=== PATIENT | female | born 1980 | race Caucasian/White ===

== ENCOUNTER 2016-10-31 15:13 | Emergency (ER) | payer OTHER ==
[2016-10-31 15:21] VITALS: BP 129/65; PULSE 65; TEMP 98.1; BMI 26.6
--- NOTE | 2016-10-31 16:48 | PDOC ---
History of Present Illness <Gaye Covarrubias - Last Filed: 10/31/16 21:19> - General History Source: Patient Exam Limitations: No Limitations - History of Present Illness Initial Comments: 10/31/16 17:30 The patient is a 36 year old female A2, with significant past medical history of hypothyroidism, who presents today complaining of heavy menstrual bleeding.The patient states that she visited her resident assistant 4 days ago for a yeast infection and found out she was . She states that she woke up this morning with heavy menstrual bleeding and clotting. Her LMP was 10/01/16 and she was expecting her menstrual period on 10/29/16. At the resident assistant appointment she did not have an ultrasound or blood work taken. She reports intermittent nausea and urinary frequency. She is worried that she is having a miscarriage. The patient notes that she was given a 3 day medication for her yeast infection by her resident assistant. The resident assistant advised her to use the medication topically and not to insert the medication; however, the patient inserted the medication anyway. No fever, chills, vomiting. No past STDs. Allergies: none reported Surgical Hx: 2 C-sections Social Hx: No tobacco use. Social drinker THIRD MATE: Dr. Rere Sue <Erika Trujillo - Last Filed: 10/31/16 21:27> - General Chief Complaint: Vaginal Bleeding Stated Complaint: VAGINAL BLEEDING () Time Seen by Provider: 10/31/16 16:47 Past History - Past Medical History Thyroid Disease: Yes (hypo) - Psycho/Social/Smoking Cessation Hx Anxiety: No Suicidal Ideation: No Smoking History: Never smoked Hx Alcohol Use: Yes (SOCIAL) Drug/Substance Use Hx: No Substance Use Type: None <Gaye Covarrubias - Last Filed: 10/31/16 21:19> <Erika Trujillo - Last Filed: 10/31/16 21:27> - Past Medical History Allergies/Adverse Reactions: Allergies Allergy/AdvReac Type Severity Reaction Status Date / Time No Known Allergies Allergy Verified 10/31/16 15:20 Home Medications: Ambulatory Orders NK [No Known Home Medication] 08/08/16 Review of Systems - Review of Systems Able to Perform ROS?: Yes Comments:: 10/31/16 17:31 CONSTITUTIONAL: Absent: fever, no chills, no fatigue EYES: Absent: visual changes ENT: Absent: ear pain, no sore throat CARDIOVASCULAR: Absent: chest pain, no palpitations RESPIRATORY: Absent: cough, no SOB GI: Present: intermittent nausea Absent: no vomiting, no constipation, no diarrhea GENITOURINARY: Present: urinary frequency, heavy menstrual bleeding Absent: dysuria, no hematuria MUSCULOSKELETAL: Absent: back pain, no arthralgia, no myalgia SKIN: Absent: rash <Erika Trujillo - Last Filed: 10/31/16 21:27> *Physical Exam - Vital Signs Last Vital Signs Temp Pulse Resp BP Pulse Ox 98.1 F 65 20 129/65 100 10/31/16 15:16 10/31/16 15:16 10/31/16 15:16 10/31/16 15:16 10/31/16 15:16 <Gaye Covarrubias - Last Filed: 10/31/16 21:19> - Vital Signs Last Vital Signs Temp Pulse Resp BP Pulse Ox 98.1 F 65 20 129/65 100 10/31/16 15:16 10/31/16 15:16 10/31/16 15:16 10/31/16 15:16 10/31/16 15:16 - Physical Exam Comments: 10/31/16 18:06 GENERAL: Well-appearing, well-nourished. No apparent distress. HEENT: Normocephalic, atraumatic. PERRL, EOM intact. CARDIOVASCULAR: Normal S1, S2. Regular rate and rhythm. PULMONARY: Clear to auscultation bilaterally. ABDOMEN: Soft, non-distended, non-tender. EXTREMITIES: Normal ROM in all four extremities. No gross deformities. PELVIC: Moderate amount of blood in the vaginal vault. No clots. Cervix not appreciated secondary to patient discomfort. SKIN: Warm, dry. No rash NEUROLOGICAL: No focal neurological deficits. <Erika Trujillo - Last Filed: 10/31/16 21:27> ED Treatment Course - LABORATORY CBC & Chemistry Diagram: 10/31/16 17:25 10/31/16 17:25 <Gaye Covarrubias - Last Filed: 10/31/16 21:19> - LABORATORY CBC & Chemistry Diagram: 10/31/16 17:25 10/31/16 17:25 - RADIOLOGY Radiograph Interpretation: 10/31/16 21:27 EXAM: Ultrasound pelvis transabdominal and transvaginal with duplex IMAGES: 50 EXAM DATE AND TIME: 2016-10-31 19:01:45.0 REASON FOR EXAM: with vaginal bleeding and lower abdominal pain COMPARISON: None FINDINGS: The uterus is mildly enlarged with no uterine masses are visualized. The endometrium is normal in thickness measuring 1 cm No intrauterine gestational sac visualized Ectopic gestation not be ruled out. Correlation with serial beta hCG and followup ultrasound suggested The ovaries are normal in size, both containing small follicles without evidence of torsion No adnexal masses visualized Small amount of free fluid in the posterior cul-de-sac THIS DOCUMENT HAS BEEN ELECTRONICALLY SIGNED Mervin Chris MD 10/31/2016 20:58 [place] Please call Imaging [facility] [employer] [phone] ([phone]) with questions. <Erika Trujillo - Last Filed: 10/31/16 21:27> Medical Decision Making - Medical Decision Making 10/31/16 17:00 36 y/o female presents to the ED with a positive test and c/o vaginal bleeding since this morning. DDx includes but is not limited to: complete ab, missed ab, threatened ab, ectopic , early , anemia. Plan: 1. Urine analysis 2. Urine 3. Beta-hCG 4. CBC 5. Obsere and re-evaluate 10/31/16 18:36 Addendum: The beta hCG level is 18. This level is very low and when correlated clinically it appears that the patient is miscarrying. I will however get an ultrasound to rule out ectopic . 10/31/16 21:19 Addendum: Pelvic ultrasound shows a mildly enlarged uterus with uterine masses. There is no intrauterine gestational sac visualized; however the ovaries are normal in size containing small follicles without evidence of torsion and there are no adnexal masses visualized. I've discussed the results of the blood tests as well as the ultrasound with the patient. I've explained that she may be either miscarrying, have an ectopic or this may be an early normal although normal is unlikely given the amount of bleeding that she is having and her low beta hCG level. I will provide the patient with results of all of her lab studies as well as the ultrasound. I have advised the patient that she must be followed up by her GROUND OPERATIONS SUPERINTENDENT doctor in 2 days for repeat beta and ultrasound. I have also advised the patient to return to the emergency department if she has more bleeding, pain, or any other symptoms. <Gaye Covarrubias - Last Filed: 10/31/16 21:19> *DC/Admit/Observation/Transfer - Discharge Dispostion Admit: No - Attestations Physician Attestion: 10/31/16 18:36 I, Dr. Gaye Covarrubias, attest that the scribes documentation that appears above has been prepared under my direction and personally reviewed by me in its entirety. I confirmed that the note above accurately reflects all work, treatment, procedures, and medical decision-making performed by me. <Gaye Covarrubias - Last Filed: 10/31/16 21:19> - Attestations Scribe Attestion: 10/31/16 17:32 Documentation prepared by YARIEL Burgess, acting as medical translator for Gaye Covarrubias MD. <Erika Trujillo - Last Filed: 10/31/16 21:27> Diagnosis at time of Disposition: Bleeding in early - Discharge Dispostion Disposition: HOME Condition at time of disposition: Stable - Patient Instructions Printed Discharge Instructions: DI for Vaginal Bleeding During Additional Instructions: You are and her having vaginal bleeding. Your beta hCG level is 18. Ultrasound does not show an intrauterine . You may possibly have an ectopic , a miscarriage or be having bleeding early on in a normal . It is essential that you follow-up with your GROUND OPERATIONS SUPERINTENDENT doctor in 2 days in order to have a repeat beta hCG level. Please return to the emergency department if your having more bleeding, abdominal pain, fainting spells or any other concerning symptoms.
[2016-10-31 17:40] LABS: BASOPHIL 1.7 % (0-2.0); EOSINOPHIL 5.6 % (0-4.5); MCH 24.4 pg (25.7-33.7); MCHC 30.6 g/dl (32.0-36.0); MEAN CELL VOLUME 79.5 fl (80-96); MEAN PLT VOLUME 8.4 fl (7.5-11.1); NEUTROPHILS 42.5 % (42.8-82.8); PLATELET COUNT 298 K/MM3 (134-434); RDW 19.8 % (11.6-15.6); WHITE BLOOD COUNT 6.5 K/mm3 (4.0-10.0)
[2016-10-31 17:50] LABS: URINE APPEARANCE CLEAR; URINE BILIRUBIN NEGATIVE (NEGATIVE); URINE COLOR LTYELLOW; URINE GLUCOSE (UA) NEGATIVE (NEGATIVE); URINE KETONE NEGATIVE (NEGATIVE); URINE LEUK ESTERASE NEGATIVE (NEGATIVE); URINE NITRITE NEGATIVE (NEGATIVE); URINE PROTEIN NEGATIVE (NEGATIVE); URINE UROBILINOGEN NEGATIVE E.U./dl (0.2-1.0)
[2016-10-31 17:52] LABS: URINE BLOOD 3+ (NEGATIVE)
[2016-10-31 18:13] LABS: CALCIUM 8.6 mg/dL (8.5-10.1); CREATININE 0.9 mg/dL (0.55-1.02); MAGNESIUM 2.1 mg/dL (1.8-2.4); PHOSPHOROUS 2.9 mg/dL (2.5-4.9)
[2016-10-31 18:45] LABS: URINE MUCUS RARE; URINE RBC 181 /hpf (0-3)
== END 2016-10-31 22:03 | disposition home or self-care (01) ==
LOC: JER 15:13
DX: O26.891 Other specified pregnancy related conditions, first trimester (principal); O20.8 Other hemorrhage in early pregnancy; O99.281 Endocrine, nutritional and metabolic diseases complicating pregnancy, first trimester; E03.8 Other specified hypothyroidism; Z3A.01 Less than 8 weeks gestation of pregnancy
CPT/HCPCS: 36415; 76817-TC; 80048; 81003; 81015; 83735; 84100; 84702; 84703; 85025; 86850; 86900; 86901; 99282-25

== ENCOUNTER 2016-11-02 16:14 | Emergency (ER) | payer OTHER ==
[2016-11-02 16:21] VITALS: BP 104/52; PULSE 65; TEMP 98; BMI 26.6
--- NOTE | 2016-11-02 17:23 | PDOC ---
History of Present Illness - General Chief Complaint: Revisit, Lab Variance Stated Complaint: REPEAT BETA Time Seen by Provider: 11/02/16 16:54 History Source: Patient - History of Present Illness Timing/Duration: reports: constant Past History - Past Medical History Allergies/Adverse Reactions: Allergies Allergy/AdvReac Type Severity Reaction Status Date / Time No Known Allergies Allergy Verified 11/02/16 16:18 Home Medications: Ambulatory Orders NK [No Known Home Medication] 08/08/16 Thyroid Disease: Yes (hypo) - Reproductive History (#): 5 Para: 2 Therapeutic (s) & number: Yes (X2) - Psycho/Social/Smoking Cessation Hx Anxiety: No Suicidal Ideation: No Smoking History: Never smoked Have you smoked in the past 12 months: No Information on smoking cessation initiated: No Hx Alcohol Use: No Drug/Substance Use Hx: No Substance Use Type: None Review of Systems - Review of Systems Constitutional: No: Chills, Fever ABD/GI: No: Nausea, Vomiting, Abdominal cramping : No: Dysuria *Physical Exam - Vital Signs Last Vital Signs Temp Pulse Resp BP Pulse Ox 98.0 F 65 18 104/52 100 11/02/16 16:18 11/02/16 16:18 11/02/16 16:18 11/02/16 16:18 11/02/16 16:18 - Physical Exam General Appearance: Yes: Appropriately Dressed. No: Apparent Distress HEENT: positive: Normal Voice Neck: positive: Supple Respiratory/Chest: negative: Respiratory Distress Gastrointestinal/Abdominal: positive: Soft. negative: Tender Integumentary: positive: Dry, Warm Neurologic: positive: Fully Oriented, Alert, Normal Mood/Affect ED Treatment Course - RADIOLOGY Radiology Studies Ordered: Category Date Time Status <14WKS US [US] Stat Ultrasound 11/02/16 16:59 Ordered Medical Decision Making - Medical Decision Making 11/02/16 17:00 36-year-old female, , was seen in ED 2 weeks ago for vaginal bleed @ ~4 weeks. Beta was 18 w/ US read as of unknown location. Patient told to return today for repeat evaluation. States she continues to bleed but not getting worse and denies any clots, abdominal pain, dysuria, nausea, vomiting, fever or chills. Urine was negative for infection on last visit and patient was O+ on labs. Patient well-appearing and stable in ED, repeat beta and ultrasound pending today 11/02/16 18:38 Beta 5 with no IUP or adnexal mass on US as per radiology. Pt stable for discharge to f/u with her WIRE THREADER this week *DC/Admit/Observation/Transfer Diagnosis at time of Disposition: Spontaneous - Discharge Dispostion Disposition: HOME Condition at time of disposition: Stable - Patient Instructions Printed Discharge Instructions: DI for Miscarriage Additional Instructions: Please follow up with your OB this week
== END 2016-11-02 19:02 | disposition home or self-care (01) ==
LOC: JERFT 16:14
DX: O02.1 Missed abortion (principal); Z3A.01 Less than 8 weeks gestation of pregnancy
CPT/HCPCS: 36415; 76801-TC; 84702; 99281-25

== ENCOUNTER 2017-03-01 20:15 | Emergency (ER) | payer BC, OTHER ==
[2017-03-01 20:25] VITALS: BP 120/70; PULSE 72; TEMP 98.5; BMI 27.4
[2017-03-01] MEDS ORDERED: TRIAMCINOLONE ACET 40MG/1ML VIAL IM ONE (20:53)
[2017-03-01] MEDS ORDERED: TRIAMCINOLONE ACET 40MG/1ML VIAL ONE (20:57)
--- NOTE | 2017-03-01 21:01 | PDOC ---
History of Present Illness - General Chief Complaint: Rash Stated Complaint: RASH Time Seen by Provider: 03/01/17 20:28 History Source: Patient, Family Exam Limitations: No Limitations - History of Present Illness Initial Comments: 03/01/17 20:53 Is here with complaints of rash that started 4 days ago around site of partial thickness burn to left thigh. Was using Silvedene Cream.. When rash developed stoped that however, since has had worsein and spreading of this rash. That is pruritic in nature. Patient denies swelling to face, lips, tongue or breathing problems. Has tried antihistamines including Claritin and Benadryl with minimal resolved. 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 No fever, no ear or throat pain, denies any pain or any swelling, any evidence of cellulitis anywhere. 03/01/17 21:02 03/01/17 21:04 Timing/Duration: reports: getting worse, gone now Severity: Yes: mild, moderate Location: reports: extremities, face, generalized, torso Respiratory Risk Factors: reports: no cause identified Past History - Travel Traveled outside of the country in the last 30 days: No Close contact w/someone who was outside of country & ill: No - Past Medical History Allergies/Adverse Reactions: Allergies Allergy/AdvReac Type Severity Reaction Status Date / Time No Known Allergies Allergy Verified 03/01/17 20:22 Home Medications: Ambulatory Orders Bacitracin 30 gm TP DAILY 03/01/17 Silver Sulfadiazine [Silvadene] 1 applic TP DAILY 03/01/17 Thyroid Disease: Yes (hypo) - Reproductive History (#): 5 Para: 2 Therapeutic (s) & number: Yes (X2) - Psycho/Social/Smoking Cessation Hx Anxiety: No Suicidal Ideation: No Smoking History: Never smoked Have you smoked in the past 12 months: No Hx Alcohol Use: No Drug/Substance Use Hx: No Substance Use Type: None Review of Systems - Review of Systems Able to Perform ROS?: Yes Is the patient limited Colombian proficient: Yes Constitutional: Yes: Symptoms Reported, See HPI, Malaise HEENTM: Yes: Symptoms Reported, Nose Pain, Nose Congestion. No: See HPI Respiratory: Yes: See HPI. No: Symptoms reported ABD/GI: Yes: Symptoms Reported : No: Symptoms Reported Musculoskeletal: No: Symptoms Reported Integumentary: Yes: Symptoms Reported, See HPI, Lesions *Physical Exam - Vital Signs Last Vital Signs Temp Pulse Resp BP Pulse Ox 98.5 F 72 18 120/70 100 03/01/17 20:23 03/01/17 20:23 03/01/17 20:23 03/01/17 20:23 03/01/17 20:23 - Physical Exam General Appearance: Yes: Appropriately Dressed, Apparent Distress, Mild Distress HEENT: positive: JOSEMANUEL, Normal ENT Inspection, TMs Normal, Pharynx Normal Respiratory/Chest: positive: Lungs Clear, Normal Breath Sounds Cardiovascular: positive: Regular Rhythm Extremity: positive: Normal Capillary Refill, Normal Range of Motion. negative : Tender Integumentary: positive: Pale, Rash (discreet rashes non-grouped, nonvesicular, mild erythema and pruritic in nature covering left thigh at site of wound but spreading throughout rest of body) Neurologic: positive: industrial commercial groundskeeper II-XII NML intact, Fully Oriented, Alert, Normal Mood/ Affect, Normal Response, Motor Strength 5/5 Progress Note - Progress Note Progress Note: Contact dermatitis versus ALLERGIC reaction to Silvadene cream. Will treat with steroids, Kenalog 40 mg dose given and continue antihistamines. Encourage follow -up with accounts receivable representative by the end of the week. *DC/Admit/Observation/Transfer Diagnosis at time of Disposition: Contact dermatitis Qualifiers: Contact dermatitis type: unspecified Contact dermatitis trigger: unspecified trigger Qualified Code(s): L25.9 - Unspecified contact dermatitis, unspecified cause - Discharge Dispostion Disposition: HOME Condition at time of disposition: Stable Admit: No - Patient Instructions Printed Discharge Instructions: DI for Contact Dermatitis Additional Instructions: Rest, keep cool and dry- avoid strenuous activity or hot /humid environments Less hot showers, no abrasive soaps May use heavy creams like Eucerin or Cetaphil to keep skin moist May apply Aveeno, calamine lotion, [id number] hydrocortisone creams as needed for symptoms May use Benadryl at night for antihistamine, Zyrtec/ Jessika or Claritin for daytime antihistamine use to help with itching May use [id number] hydrocortisone cream on all areas except face You were given 40 mg of Kenalog, long acting steroid Try to identify cause for rash and avoid exposures Followup with PMD in one week if no resolution Make appointment with accounts receivable representative for evaluation when possible - Post Discharge Activity Work/School Note: Back to Work
== END 2017-03-01 21:59 | disposition home or self-care (01) ==
LOC: JERFT 20:15
PROC: 3E0233Z Introduction of Anti-inflammatory into Muscle, Percutaneous Approach (ICD-10-PCS; principal; 2017-03-01)
DX: L25.9 Unspecified contact dermatitis, unspecified cause (principal)
CPT/HCPCS: 96372; 99281-25

== ENCOUNTER 2017-05-04 13:53 | Emergency (ER) | payer BC, OTHER ==
[2017-05-04 14:01] VITALS: BP 107/62; PULSE 77; TEMP 98.9; BMI 27.1
--- NOTE | 2017-05-04 14:53 | PDOC ---
History of Present Illness - General Chief Complaint: Pain Stated Complaint: RT LEG PAIN Time Seen by Provider: 05/04/17 14:35 History Source: Patient Exam Limitations: No Limitations (0) - History of Present Illness Initial Comments: 05/04/17 14:49 Patient is a 36-year-old female, with hypothyroidism currently on synthroid presents for evaluation of "dent" to right upper leg. Reports that she noticed a discoloration to her skin and felt dent to her right upper thigh denies any injury to area, states that the discoloration in her skin was similar to a fungal infection that she had on her arm which has resolved. There is no pain to the area, no redness swelling or signs of infection. Past Medical History: Denies. Allergies: No known allergies Family History: Non-contributory Social History: Denies smoking, alcohol use, or IVDU Review of Systems GENERAL/CONSTITUTIONAL: No fever or chills. No weakness. No weight change. HEAD, EYES, EARS, NOSE AND THROAT: No change in vision. No ear pain or discharge. No sore throat. CARDIOVASCULAR: No chest pain or shortness of breath. RESPIRATORY: No cough, wheezing, or hemoptysis. GASTROINTESTINAL: No nausea, vomiting, diarrhea or constipation. No rectal bleeding. GENITOURINARY: No dysuria, frequency, or change in urination. MUSCULOSKELETAL: No joint or muscle swelling or pain. No neck or back pain. SKIN : No rash or easy bruising. Dimple to right upper lateral leg no surrounding erythema edema or warmth. Physical Exam: GENERAL: The patient is awake, alert, and fully oriented, in no acute distress. EYES: Pupils equal, round and reactive to light, extraocular movements intact, sclera anicteric, conjunctiva clear. ENT: Ears normal, nares patent, oropharynx clear without exudates. Moist mucous membranes. No uvula deviation NECK: Normal range of motion, supple without lymphadenopathy, JVD, or masses. LUNGS: Breath sounds equal, clear to auscultation bilaterally. No wheezes, and no crackles. HEART: Regular rate and rhythm, normal S1 and S2 without murmur, rub or gallop. ABDOMEN: Soft, nontender, normoactive bowel sounds. No guarding, no rebound. No masses. No bruising or abrasions RECTAL : Guaiac negative, normal rectal tone. MUSCULOSKELETAL: Normal range of motion, no edema. No clubbing or cyanosis. No cords, erythema, or tenderness. No CVA Tenderness with fist. NEUROLOGICAL: Cranial nerves II through XII grossly intact. Normal speech, normal gait. SKIN: Warm, Dry, normal turgor, no rashes or lesions noted. Dimple to right upper lateral leg 05/04/17 14:59 Past History - Past Medical History Allergies/Adverse Reactions: Allergies Allergy/AdvReac Type Severity Reaction Status Date / Time No Known Allergies Allergy Verified 05/04/17 14:01 Home Medications: Ambulatory Orders Levothyroxine [Synthroid -] 100 mcg PO DAILY 05/04/17 Thyroid Disease: Yes (hypo) - Reproductive History (#): 5 Para: 2 Therapeutic (s) & number: Yes (X2) - Psycho/Social/Smoking Cessation Hx Anxiety: No Suicidal Ideation: No Smoking History: Never smoked Have you smoked in the past 12 months: No Information on smoking cessation initiated: No Hx Alcohol Use: No Drug/Substance Use Hx: No Substance Use Type: None *Physical Exam - Vital Signs Last Vital Signs Temp Pulse Resp BP Pulse Ox 98.9 F 77 18 107/62 100 05/04/17 13:57 05/04/17 13:57 05/04/17 13:57 05/04/17 13:57 05/04/17 13:57 Medical Decision Making - Medical Decision Making 05/04/17 15:14 A/P: Patient with dimple to right upper lateral leg. There is no erythema, edema or deformity, no trauma to area. Patient just states she noticed that the indentation was on her leg today. Will refer patient to orthopedics in dermatology. There is no evidence of cellulitis or infection to area, no trauma. *DC/Admit/Observation/Transfer Diagnosis at time of Disposition: Injury of upper leg Qualifiers: Encounter type: initial encounter Laterality: right Qualified Code(s): S79.921A - Unspecified injury of right thigh, initial encounter - Discharge Dispostion Disposition: HOME Condition at time of disposition: Good Admit: No - Referrals Referrals: Ilia Barry MD [Staff Physician] - (ortho) Ronald Burton [Non Staff, Medical] - (derm) - Patient Instructions Additional Instructions: Recommend follow up with ortho for evaluation of muscle and dermatology for skin If any increased redness, swelling or other concerns return to the ER.
== END 2017-05-04 15:01 | disposition home or self-care (01) ==
LOC: JERFT 13:53
DX: R23.4 Changes in skin texture (principal)
CPT/HCPCS: 99281-25